=== PATIENT | female | born 1940 | race Asian ===

== ENCOUNTER 2020-10-05 09:25 | Inpatient (IN) | payer MEDICARE, MEDICAID ==
[~2020-10-05] VITALS: Ht 162.6 cm; Wt 59.0 kg
[2020-10-05] MEDS ORDERED: PIPERACILLIN/TAZ 3.375G PREMIX 50 ML IV ONE (10:15)
[2020-10-05] MEDS ORDERED: VANCOMYCIN 1 G PREMIX 200 ML IV ONE (10:15)
[2020-10-05] MEDS ORDERED: ACETAMINOPHEN 325MG TABLET PO ONE (10:30)
[2020-10-05 11:16] LABS: HEMATOCRIT. 23.1 % (36.0-48.0); HEMOGLOBIN. 7.8 g/dL (12.0-16.0); MEAN CORPUSCULAR HEMOGLOBIN 32.6 pg (28.0-32.0); MEAN PLATELET VOLUME 9.7 fl (7.4-10.4); RED BLOOD CELL COUNT 2.38 mill/uL (4.2-5.4); RED CELL DISTRIBUTION WIDTH 17.4 % (11.6-14.6)
[2020-10-05 11:27] LABS: CHLORIDE 95 mEq/L (98-107); D-DIMER 1.78 mg/L FEU (<0.50); INR 1.4; PROTHROMBIN TIME 14.5 sec (9.6-11.0)
[2020-10-05 11:35] LABS: CREATINE KINASE 14 IU/L (26-192)
[2020-10-05] MEDS ORDERED: POTASSIUM CHLORIDE 20MEQ TABLET SR PO ONE (12:15)
[2020-10-05 14:18] LABS: NUCLEATED RED BLOOD CELLS 1 /100 WBC
[2020-10-05 14:19] LABS: PLATELET ESTIMATE MARKEDLY DECREASED
[2020-10-05 14:20] LABS: PLATELET 27 x1000/uL (130-400)
[2020-10-05 14:38] LABS: CLARITY URINE CLEAR (CLEAR); COLOR URINE DARK YELLOW (YELLOW); KETONES URINE TRACE (NEGATIVE); LEUKOCYTE ESTERASE URINE TRACE (NEGATIVE); NITRITE URINE NEGATIVE (NEGATIVE); OCCULT BLOOD URINE NEGATIVE (NEGATIVE); PH URINE 6.5 (4.5-8.0); PROTEIN URINE 2+ (NEGATIVE); SPECIFIC GRAVITY URINE 1.016 (1.005-1.030)
[2020-10-05] MEDS ORDERED: CLONIDINE 0.1MG TABLET PO PRN (18:15)
[2020-10-05] MEDS ORDERED: ACETAMINOPHEN 325MG TABLET PO PRN (18:15)
[2020-10-05] MEDS ORDERED: DIPHENHYDRAMINE 50MG/ML VIAL IV PRN (18:15)
[2020-10-05] MEDS ORDERED: IPRATROPIUM/ALBUTEROL 0.5-3(2.5)MG/3ML NEB HHN PRN (18:15)
[2020-10-05] MEDS ORDERED: ONDANSETRON HCL 4MG/2ML INJ IV PRN (18:15)
[2020-10-05] MEDS ORDERED: DEXTROSE 50% WATER 50ML SYRINGE IV PRN (18:30)
[2020-10-05] MEDS: SODIUM CHLORIDE 0.9% 1,000 ML IV SCH (18:39)
[2020-10-05] MEDS ORDERED: POTASSIUM CHLORIDE INJ 40 MEQ in DEXT 5% WATER 250 ML IV NR (19:00)
[2020-10-05] MEDS ORDERED: CEFEPIME 2,000 MG in DEXT 5% WATER 100 ML IV SCH (20:00)
[2020-10-05] MEDS: INSULIN LISPRO 100 UNITS/ML SUBCUT SCH (21:00)
[2020-10-05] MEDS: BLOOD SUGAR DIAGNOSTIC STRIP TEST SCH (21:25)
[2020-10-05 21:45] VITALS: BP 131/98
[2020-10-05 22:00] VITALS: BP 131/98
[2020-10-05] MEDS: METRONIDAZOLE 500 MG PREMIX 100 ML IV SCH (22:00)
[2020-10-05] MEDS ORDERED: PIPERACILLIN/TAZOBACTAM 3.375 G in DEXTROSE 5% WATER 50 ML IV SCH (22:00)
[2020-10-05] MEDS ORDERED: ASPI-1497 MT (23:56)
[2020-10-05] MEDS ORDERED: LEVO50TA8 MT (23:56)
[2020-10-05] MEDS ORDERED: ICOS1CAP PO (23:56)
[2020-10-05] MEDS ORDERED: METO-396 MT (23:56)
[2020-10-05] MEDS ORDERED: ATOR10TA69 PO (23:56)
[2020-10-05] MEDS ORDERED: LIPA1CAP18 PO (23:56)
[2020-10-06] VITALS (11 sets, daily range): BP systolic 117–152; BP diastolic 59–83
[2020-10-06] MEDS: METRONIDAZOLE 500 MG PREMIX 100 ML IV SCH ×3 (01:02→19:28)
[2020-10-06] MEDS ORDERED: VANCOMYCIN 750 MG PREMIX 150 ML IV SCH ×2 (06:00→10:00)
[2020-10-06 07:30] LABS: CHLORIDE 98 mEq/L (98-107)
[2020-10-06] MEDS: BLOOD SUGAR DIAGNOSTIC STRIP TEST SCH (07:30)
[2020-10-06 07:40] LABS: LDL CHOLESTEROL 36 mg/dL (5-100)
[2020-10-06 07:41] LABS: HEMATOCRIT. 22.2 % (36.0-48.0); HEMOGLOBIN. 7.4 g/dL (12.0-16.0); MEAN CORPUSCULAR HEMOGLOBIN 33.1 pg (28.0-32.0); MEAN CORPUSCULAR VOLUME 99.6 fL (81.0-99.0); RED BLOOD CELL COUNT 2.23 mill/uL (4.2-5.4); RED CELL DISTRIBUTION WIDTH 19.6 % (11.6-14.6)
[2020-10-06 07:43] LABS: HDL CHOLESTEROL 13 mg/dL (40-59)
[2020-10-06] MEDS: INSULIN LISPRO 100 UNITS/ML SUBCUT SCH (08:00)
[2020-10-06 08:37] LABS: PLATELET ESTIMATE MARKEDLY DECREASED
[2020-10-06 08:38] LABS: PLATELET 16 x1000/uL (130-400)
[2020-10-06] MEDS ORDERED: CEFEPIME 1,000 MG in DEXTROSE 5% WATER 50 ML IV SCH (10:00)
[2020-10-06] MEDS ORDERED: POTASSIUM CHLORIDE INJ 40 MEQ in DEXT 5% WATER 250 ML IV NR (11:00)
[2020-10-06] MEDS: SODIUM CHLORIDE 0.9% 1,000 ML IV SCH ×2 (19:26→20:22)
[2020-10-06] MEDS ORDERED: CEFEPIME 2,000 MG in DEXT 5% WATER 100 ML IV SCH (21:00)
[2020-10-07] VITALS: BP 135/74
[2020-10-07] MEDS ORDERED: VANCOMYCIN 750 MG PREMIX 150 ML IV SCH
== END 2020-10-07 01:05 | disposition short-term general hospital (02) | DRG 871 ==
LOC: ER 09:25 → 5EST 15:01 → EDBEDREQ 15:07 → EDBEDREQSVC 15:07 → ENRESERV 20:13 → 5EST 10-06 02:00
PROVIDERS: ADMIT Internal Medicine; ATTEND Internal Medicine
DX: A41.9 Sepsis, unspecified organism (principal); J69.0 Pneumonitis due to inhalation of food and vomit; D61.818 Other pancytopenia; E78.00 Pure hypercholesterolemia, unspecified; E78.5 Hyperlipidemia, unspecified; I10 Essential (primary) hypertension; Z20.822 Contact with and (suspected) exposure to COVID-19; K21.9 Gastro-esophageal reflux disease without esophagitis; R22.40 Localized swelling, mass and lump, unspecified lower limb; D72.825 Bandemia
CPT/HCPCS: 36415; 71045; 80053; 80061; 81003; 82550; 82728; 82962; 83036; 83605; 83615; 84145; 84443; 84484; 85025; 85379; 85384; 86140; 87426; 93005; 93970; 99291; J0692; J2543; J3370; J3480; J3490; J7060